=== PATIENT | female | born 1940 | race Two or more races ===

== ENCOUNTER → 2018-07-07 | Outpatient (CLI) | payer MEDICARE ==
--- NOTE | 2018-07-07 11:53 | Diagnostic Imaging Report ---
MRI of the right shoulder without contrast. History: Shoulder pain. Impingement. Fall. Decreased range of motion. Comparison: None Technique: Coronal PD FS, sagital PD FS, and axial PD and PD FS. Findings: Rotator cuff: There is a chronic appearing full-thickness rotator cuff tear involving the supraspinatus, infraspinatus and subscapularis tendons at the humeral insertion site. There is retraction of the torn fibers to the level of the glenoid. There is marked muscle atrophy. The teres minor tendon is intact. Osseous acromion complex: There is a type II acromion with mild lateral downsloping. There is moderate degenerative arthrosis at the acromioclavicular joint with undersurface spurring. The humeral head approaches the undersurface of the acromion. Glenohumeral joint: There is circumferential degenerative type tearing of the labrum. There are regions of full-thickness articular cartilage loss with subchondral cystic change most pronounced in the superior glenoid. There are peripheral marginal osteophytes. There is a lobulated posterior para meniscal cyst. Biceps tendon: There is intra-articular biceps tendinosis. The biceps tendon is subluxed medially out of the bicipital groove. Other findings: Negative for muscle denervation or osseous fracture. Impression: Chronic appearing full-thickness rotator cuff tear with retraction and muscle atrophy. 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 There is intra-articular biceps tendinosis. The biceps tendon is subluxed medially out of the bicipital groove. Signed by: Dr. Stephane Larios M.D. on 07/07/2018 11:50 AM
== END ==
LOC: MRI 09:35
PROVIDERS: ATTEND Specialist
DX: M75.41 Impingement syndrome of right shoulder (principal)

== ENCOUNTER → 2018-07-15 | Outpatient (CLI) | payer MEDICARE ==
--- NOTE | 2018-07-15 09:59 | Diagnostic Imaging Report ---
PROCEDURE: US THYROID COMPARISON: None. INDICATIONS:Hypothyroidism TECHNIQUE: Transverse and longitudinal lopez-scale sonographic images of the thyroid were obtained and supplemented with color doppler. FINDINGS: Right thyroid lobe: Measures up to 4.1 cm. Mildly heterogeneous appearance without evidence of nodule. Left thyroid lobe: Measures up to 3.7 cm. Mildly heterogeneous appearance without evidence of nodule. Isthmus: Measures up to 0.2 cm. Mildly heterogeneous appearance without evidence of nodule. Normal Doppler vacular flow. CONCLUSION: Non-specific mildly heterogeneous appearance of the thyroid without evidence of nodule. Dictated by: EUGENIO AG M.D. on 07/15/2018 at 10:06 Electronically approved by: EUGENIO AG M.D. on 07/15/2018 at 10:06
== END ==
LOC: US 08:49
PROVIDERS: ATTEND Family Medicine
DX: E03.9 Hypothyroidism, unspecified (principal)
CPT/HCPCS: 76536

== ENCOUNTER → 2019-06-04 | Outpatient (CLI) | payer MEDICARE ==
--- NOTE | 2019-06-04 11:54 | Diagnostic Imaging Report ---
Chest, 2 views, 06/04/2019. History: Cough. Comparison: None available. Findings: The cardiac silhouette is mildly enlarged but the pulmonary vasculature is within normal limits. The lungs are clear without evidence of consolidation or pleural effusion. There are no acute osseous or soft tissue abnormalities. Impression: Mild cardiomegaly without acute pulmonary abnormality. Signed by: Zak Morrow on 06/04/2019 11:51 AM
== END ==
LOC: RAD 10:29
PROVIDERS: ATTEND Family Medicine
DX: J40 Bronchitis, not specified as acute or chronic (principal)
CPT/HCPCS: 71046

== ENCOUNTER → 2019-09-02 | Outpatient (CLI) | payer MEDICARE ==
--- NOTE | 2019-09-02 09:19 | Diagnostic Imaging Report ---
Lumbar spine series, 5 views. History: Low back pain. Comparison: None available. Discussion: The paraspinal soft tissues are unremarkable. The alignment of the lumbar spine is normal. There is no evidence of fracture. There is grade 1 spondylolisthesis of L4 and L5 and L5 on S1 without evidence of spondylolysis. Flexion and extension views demonstrates no evidence of further subluxation. Severe disc space narrowing is present at L4-L5 and L5-S1 with osteophytosis and posterior facet sclerosis. 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 Signed by: Zak Morrow on 09/02/2019 9:15 AM
== END ==
LOC: RAD 07:56
PROVIDERS: ATTEND Neurological Surgery
DX: M54.5 Low back pain (principal); M79.604 Pain in right leg; M48.061 Spinal stenosis, lumbar region without neurogenic claudication
CPT/HCPCS: 72110